=== PATIENT | female | born 1985 | race American Indian/Alaskan Native ===

== ENCOUNTER 2018-04-25 22:41 | Emergency (ER) | payer MEDICAID ==
[2018-04-25 23:30] VITALS: BP 122/76
[2018-04-25] MEDS ORDERED: TYLENOL PO ONE (23:58)
[2018-04-25] MEDS ORDERED: ZOFRAN ODT PO ONE (23:58)
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
== END 2018-04-26 00:20 ==
LOC: ED 22:41
DX: O9A.211 Injury, poisoning and certain other consequences of external causes complicating pregnancy, first trimester (principal); S00.83XA Contusion of other part of head, initial encounter; M54.2 Cervicalgia; J45.909 Unspecified asthma, uncomplicated; Z3A.11 11 weeks gestation of pregnancy
CPT/HCPCS: 99282; Q0162